=== PATIENT | male | born 1970 | race American Indian/Alaskan Native ===

== ENCOUNTER 2020-01-05 20:25 | Emergency (ER) | payer MEDICAID ==
[2020-01-05 23:09] VITALS: BP 155/95
--- NOTE | 2020-01-05 23:45 | XRay Report ---
RIGHT ELBOW 3 VIEWS INDICATION / CLINICAL INFORMATION: Right elbow injury. COMPARISON: None available. FINDINGS: No fracture or dislocation. No suggestion of hemarthrosis. Tiny olecranon spur is incidentally noted. Soft tissue edema seen in the posterior tissues of the arm, just above the elbow.. IMPRESSION: No fracture or dislocation. Signer Name: Etta Cox MD Signed: 01/05/2020 11:41 PM Workstation Name: [id number]
--- NOTE | 2020-01-06 00:10 | Emergency Department Report ---
Upper Extremity - HPI Chief Complaint: Extremity Problem,Nontraumatic Stated Complaint: ELBOW PROBLEM Time Seen by Provider: 01/05/20 23:01 Upper Extremity: Right Elbow Occurred When: >5 Days Mechanism: Fall Severity: moderate Symptoms: Yes Pain with Movement, Yes Swelling, Yes Bruising/Ecchymosis, No Deformity, No Limited Range of Movement, No Numbness, No Weakness, No Laceration or Abrasion Other History: The patient was evaluated in the emergency department for symptoms described in the history of present illness. He/she was evaluated in the context of the global COVID-19 pandemic, which necessitated consideration that the patient might be at risk for infection with the virus that causes COVID-19. Institutional protocols and algorithms that pertain to the evaluation of patients at risk for COVID-19 are in a state of rapid change based on information released by regulatory bodies including the CDC and federal and state organizations. These policies and algorithms were followed during the patient's care in the emergency department. Please note that these policies, procedures and recommendations changed on a rapid basis. 49-year-old - [place] male presents to the emergency room stating that he had fallen and injured his right elbow. Patient reports starting to drain swelling pain but able to move it. Patient denies any head injury or loss of consciousness. Patient denies any fever chills no nausea no vomiting. ED Review of Systems ROS: Stated complaint: ELBOW PROBLEM Other details as noted in HPI Comment: All other systems reviewed and negative ED Past Medical Hx - Past Medical History Previous Medical History?: No - Surgical History Past Surgical History?: No - Social History Smoking Status: Never Smoker Substance Use Type: None - Medications Home Medications: Home Medications Medication Instructions Recorded Confirmed Last Taken Type Ibuprofen [Motrin 600 MG tab] 600 mg PO Q8H PRN #30 tablet 01/06/20 Unknown Rx Sulfamethoxazole/Trimethoprim 1 each PO BID 7 Days #14 tablet 01/06/20 Unknown Rx [Bactrim DS TAB] cephALEXin [Keflex] 500 mg PO Q12HR 7 Days #14 cap 01/06/20 Unknown Rx Upper Extremity Exam - Exam General: Vital signs noted. No distress. Alert and acting appropriately. Head and Torso: No HEENT Abnormality, No Neck Tenderness, No Chest/Lungs Abnormality, No Abdominal Tenderness, No Back Tenderness Shoulder Exam: Yes Normal Range of Motion in Shoulder, No Shoulder Tenderness, No Clavicle Tenderness, No Shoulder Deformity, No AC Joint Tenderness Arm Exam: No Arm/Humerus Tenderness, No Arm Deformity Elbow: Yes Elbow Tenderness, Yes Normal Range of Motion in Elbow, No Elbow Deformity (Swelling with abrasion appears to be infected mild tenderness to palpate) Forearm: Yes Forearm Tenderness, No Forearm Deformity, No Pain with Pronation, No Pain with Supination Wrist: Yes Normal ROM in Wrist, No Wrist Tenderness, No Wrist Deformity, No Snuffbox Tenderness, No Pain with Axial Thumb Compression Hand: Yes Normal ROM in Digit(s), No Hand Tenderness, No Hand Deformity, No Digit Tenderness, No Digit(s) Deformity, No Tendon Dysfunction ED Course Vital Signs 01/05/20 01/05/20 22:25 22:33 Temperature 98.5 F 98.5 F Pulse Rate 107 H 103 H Respiratory 17 20 Rate Blood Pressure 145/99 155/95 O2 Sat by Pulse 96 96 Oximetry ED Medical Decision Making - Radiology Data Radiology results: [place] [address] XRay Report Signed Patient: JONATHAN LEON MR#: [id number] : 1970 Acct:[id number] Age/Sex: 49 / M ADM Date: 01/05/20 Loc: ED Attending Dr: Ordering Physician: SOL BRADY Date of Service: 01/05/20 Procedure(s): XR elbow 2V RT Accession Number(s): [id number] cc: SOL BRADY Fluoro Time In Minutes: RIGHT ELBOW 3 VIEWS INDICATION / CLINICAL INFORMATION: Right elbow injury. COMPARISON: None available. FINDINGS: No fracture or dislocation. No suggestion of hemarthrosis. Tiny olecranon spur is incidentally noted. Soft tissue edema seen in the posterior tissues of the arm, just above the elbow.. IMPRESSION: No fracture or dislocation. Signer Name: Etta Cox MD Signed: 01/05/2020 11:41 PM Workstation Name: [id number] Transcribed By: Dictated By: Etta Cox MD Electronically Authenticated By: Etta Cox MD Signed Date/Time: 01/05/20 972 DD/ 230 TD/TT: - Medical Decision Making 49-year-old -[place] male presents to the emergency room stating that he had fallen and injured his right elbow. Patient reports starting to drain swelling pain but able to move it. Patient denies any head injury or loss of consciousness. Patient denies any fever chills no nausea no vomiting. X-rays negative for any acute findings. Patient be treated for cellulitis. Place patient on Bactrim and Keflex with ibuprofen for pain management. Referral to [facility]. Critical care attestation.: If time is entered above; I have spent that time in minutes in the direct care of this critically ill patient, excluding procedure time. ED Disposition Clinical Impression: Cellulitis of right elbow Disposition: DC-01 TO HOME OR SELFCARE Is pt being admited?: No Does the pt Need Aspirin: No Condition: Stable Instructions: Cellulitis, Adult, [id number] Additional Instructions: X-ray is negative for any acute fractures or dislocation. I am treating you for cellulitis. I would like for you to complete your antibiotics take your pain medication keep your wound clean and dry. Follow-up with your primary care provider. Prescriptions: Sulfamethoxazole/Trimethoprim [Bactrim DS TAB] 1 each PO BID 7 Days #14 tablet cephALEXin [Keflex] 500 mg PO Q12HR 7 Days #14 cap Ibuprofen [Motrin 600 MG tab] 600 mg PO Q8H PRN #30 tablet PRN Reason: Pain Referrals: PRIMARY CARE, [Primary Care Provider] - 3-5 Days [facility] [Provider Group] - 3-5 Days Forms: Work/School Release Form(ED)
--- NOTE | 2020-01-06 00:37 | Emergency Department Report ---
ED Lower Extremity HPI - General Chief Complaint: Extremity Problem,Nontraumatic Stated Complaint: ELBOW PROBLEM Time Seen by Provider: 01/05/20 23:01 Source: patient Mode of arrival: Ambulatory Limitations: No Limitations - Related Data Previous Rx's Medication Instructions Recorded Last Taken Type Ibuprofen [Motrin 600 MG tab] 600 mg PO Q8H PRN #30 tablet 01/06/20 Unknown Rx Sulfamethoxazole/Trimethoprim 1 each PO BID 7 Days #14 tablet 01/06/20 Unknown Rx [Bactrim DS TAB] cephALEXin [Keflex] 500 mg PO Q12HR 7 Days #14 cap 01/06/20 Unknown Rx Allergies Allergy/AdvReac Type Severity Reaction Status Date / Time No Known Allergies Allergy Unverified 01/05/20 22:36 ED Review of Systems ROS: Stated complaint: ELBOW PROBLEM Other details as noted in HPI ED Past Medical Hx - Past Medical History Previous Medical History?: No - Surgical History Past Surgical History?: No - Social History Smoking Status: Never Smoker Substance Use Type: None - Medications Home Medications: Home Medications Medication Instructions Recorded Confirmed Last Taken Type Ibuprofen [Motrin 600 MG tab] 600 mg PO Q8H PRN #30 tablet 01/06/20 Unknown Rx Sulfamethoxazole/Trimethoprim 1 each PO BID 7 Days #14 tablet 01/06/20 Unknown Rx [Bactrim DS TAB] cephALEXin [Keflex] 500 mg PO Q12HR 7 Days #14 cap 01/06/20 Unknown Rx ED Physical Exam - General Limitations: No Limitations Critical care attestation.: If time is entered above; I have spent that time in minutes in the direct care of this critically ill patient, excluding procedure time. ED Disposition Condition: Stable Referrals: PRIMARY CARE, [Primary Care Provider] - 3-5 Days
== END 2020-01-06 00:20 | disposition home or self-care (01) ==
LOC: ED 20:25
DX: L03.113 Cellulitis of right upper limb (principal); Z79.1 Long term (current) use of non-steroidal anti-inflammatories (NSAID); Z79.899 Other long term (current) drug therapy